=== PATIENT | female | born 1990 | race Caucasian/White ===

== ENCOUNTER 2021-12-12 11:12 | Emergency (ER) | payer BC ==
[~2021-12-12] VITALS: Ht 170.2 cm; Wt 110.2 kg
== END 2021-12-12 14:34 | disposition home or self-care (01) ==
LOC: ER 11:12
DX: J11.1 Influenza due to unidentified influenza virus with other respiratory manifestations (principal); R07.89 Other chest pain; D64.9 Anemia, unspecified; Z88.0 Allergy status to penicillin